=== PATIENT | male | born 1990 ===

== ENCOUNTER 2021-05-25 11:18 | Emergency (ER) | payer SELFPAY ==
[~2021-05-25] VITALS: Ht 175.3 cm; Wt 81.6 kg
[2021-05-25] MEDS ORDERED: MORPHINE SULFATE 4 MG/ML SYR/VIAL ONE (11:41)
[2021-05-25] MEDS ORDERED: ONDANSETRON HCL 4 MG/2 ML VIAL ONE (11:41)
[2021-05-25] MEDS ORDERED: ONDANSETRON HCL 4 MG/2 ML VIAL IV ONE (11:45)
[2021-05-25] MEDS ORDERED: MORPHINE SULFATE 4 MG/ML SYR/VIAL IV ONE ×2 (11:45→13:15)
[2021-05-25] MEDS ORDERED: SILVER SULFADIAZINE 1 % TOPICAL CREAM 50GM TOP ONE (15:00)
[2021-05-25] MEDS ORDERED: TETANUS-DIPTH-ACEL PERTUSSIS 0.5ML SYR Tdap IM ONE (15:45)
[2021-05-25] MEDS ORDERED: ceFAZolin 1GM/50ML 50 ML IV ONE (15:45)
[2021-05-25 16:01] VITALS: BP 144/64
[2021-05-25] MEDS ORDERED: HYDR-4902 PO (16:04)
== END 2021-05-25 16:34 | disposition home or self-care (01) ==
LOC: ER 11:18
DX: T23.261A Burn of second degree of back of right hand, initial encounter (principal); T20.26XA Burn of second degree of forehead and cheek, initial encounter; T20.211A Burn of second degree of right ear [any part, except ear drum], initial encounter; T26.01XA Burn of right eyelid and periocular area, initial encounter; T20.20XA Burn of second degree of head, face, and neck, unspecified site, initial encounter; X08.8XXA Exposure to other specified smoke, fire and flames, initial encounter; Y93.89 Activity, other specified; Y92.89 Other specified places as the place of occurrence of the external cause; Y99.8 Other external cause status
CPT/HCPCS: 71045; 96374; 96375; 96376; 99285; J2270; J2405